=== PATIENT | male | born 2000 | race Caucasian/White ===

== ENCOUNTER 2019-01-04 11:48 | Emergency (ER) | payer OTHER ==
[~2019-01-04] VITALS: Ht 182.9 cm; Wt 119.0 kg
[2019-01-04 16:47] VITALS: BP 138/68
== END 2019-01-04 17:36 ==
LOC: ED 12:32
DX: R45.851 Suicidal ideations (principal); F41.1 Generalized anxiety disorder; F32.9 Major depressive disorder, single episode, unspecified
CPT/HCPCS: 36415; 80053; 80307; 85025; 99285